=== PATIENT | female | born 1940 | race Caucasian/White ===

== ENCOUNTER → 2016-08-26 | Outpatient (CLI) | payer MEDICARE, OTHER ==
--- NOTE | 2016-08-26 10:48 | KCIC ---
PROCEDURE Lumbar spine, five views. HISTORY Pain FINDINGS Frontal, lateral, bilateral oblique and coned sacral views of the lumbar spine are obtained. There is S-shaped lumbar scoliosis, with dextrocurvature centered at the upper lumbar levels and levo curvature centered at the lower lumbar levels. There is degenerative endplate remodeling with disc space narrowing and osteophytosis at multiple levels. There is mild grade 1 anterolisthesis of L5 on S1, and to a lesser extent, L4 on L5. There is also retrolisthesis of L1 on L2, L2 on L3 and L3 on L4. There is facet arthropathy predominately at the lumbosacral junction. There is atherosclerotic abdominal aorta. IMPRESSION 1. Multilevel degenerative change within the lumbar spine, described in detail above. 2. S shaped lumbar scoliosis and multilevel listhesis, described above. Electronically signed by: Oly Landrum (Aug 26, 2016 10:46:42)
== END | disposition home or self-care (01) ==
LOC: KCIC 09:45
DX: M54.5 Low back pain (principal)
CPT/HCPCS: 72110

== ENCOUNTER → 2016-10-26 | Outpatient (CLI) | payer MEDICARE, OTHER ==
--- NOTE | 2016-10-26 16:44 | RAD ---
Indication: Enlarged thyroid. The right lobe of the thyroid measures 4.9 x 2.0 x 1.8 cm and the left lobe measures 5.2 x 2.0 x 2.4 cm. Multiple hypoechoic nodules are identified in the right lobe, largest approximately 1.5 x 0.7 cm. The isthmus is 3 mm in thickness. Both lobes do show diffuse heterogeneity. No discrete mass in the left lobe is identified. Impression: Thyroid heterogeneity. There are numerous nodules on the right, largest 1.5 cm. Follow-up in 6 months could be performed to confirm stability.
== END | disposition home or self-care (01) ==
LOC: US 16:55
PROVIDERS: ATTEND Nurse Practitioner Family
DX: E04.9 Nontoxic goiter, unspecified (principal)
CPT/HCPCS: 76536

== ENCOUNTER → 2016-10-28 | Outpatient (CLI) | payer MEDICARE, OTHER ==
--- NOTE | 2016-10-28 10:01 | CARD ---
APPROVED REPORT EXAM: Two-dimensional and M-mode echocardiogram with Doppler and color Doppler. Other Information Quality : GoodHR: 92bpm Rhythm : NSR INDICATION Nonischemic cardiomyopathy RISK FACTORS Hypertension Hyperlipidemia Family History Diabetes 2D DIMENSIONS RVDd2.4 (2.9-3.5cm)Left Atrium(2D)3.1 (1.6-4.0cm) IVSd1.3 (0.7-1.1cm)Aortic Root(2D)3.2 (2.0-3.7cm) LVDd3.8 (3.9-5.9cm)LVOT Diameter2.2 (1.8-2.4cm) PWd1.2 (0.7-1.1cm)LVDs3.2 (2.5-4.0cm) FS (%) 15.7 %SV20.9 ml Aortic Valve AoV Peak Roberto.234.9cm/sAoV VTI53.0cm AO Peak GR.22.1mmHgLVOT Peak Roberto.100.1cm/s AO Mean GR.12mmHgAVA (VMAX)1.64cm2 Mitral Valve MV E Slajfxgy25.1cm/sMV E Peak Gr.8mmHg MV A Qrfivphf381.7cm/sMV E Mean Gr.4mmHg E/A Ratio0.7MV A Gvmuthzz203fo Pulmonary Valve PV Peak Msqrtorv15.5cm/s Tricuspid Valve TR P. Lhgsyvqe538qs/sTR Peak Gr.37mmHg Pulmonary Vein S1 Accntwca52.9cm/sD2 Gvnzeuhp93.3cm/s PVa uesnlqhg40nrrx LEFT VENTRICLE The left ventricle is normal size. There is mild to moderate left ventricular hypertrophy. Left ventr icle systolic function is normal. The Ejection Fraction is 50-55%. Transmitral Doppler flow pattern i s Grade I-abnormal relaxation pattern. No left ventricle thrombus noted on this study. RIGHT VENTRICLE The right ventricle is normal size. There is normal right ventricular wall thickness. The right ventr icular systolic function is normal. ATRIA The left atrium is moderately dilated. The right atrium size is normal. 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 AORTIC VALVE The aortic valve is moderately sclerotic. The aortic valve is trileaflet. Doppler and Color Flow reve aled no significant aortic regurgitation. There is mild valvular aortic stenosis. Calculated aortic v alve area is 1.6 cm2 with maximum pressure gradient of 22.0 mmHg and mean pressure gradient of 12.0 m mHg. MITRAL VALVE Mitral annular calcification is moderate. The mitral valve leaflets are thickened. There is no eviden ce of mitral valve prolapse. There is no mitral valve stenosis. Doppler and Color Flow revealed mild mitral regurgitation. TRICUSPID VALVE Doppler and Color Flow revealed mild tricuspid regurgitation. The pulmonary artery systolic pressure is estimated at 40 mmHg. There is mild pulmonary hypertension. PULMONIC VALVE Doppler and Color Flow revealed no pulmonic valvular regurgitation. There is no pulmonic valvular katerin nosis. GREAT VESSELS The aortic root is normal in size. The ascending aorta is normal in size. The pulmonary artery is nor mal. The IVC is normal in size and collapses >50% with inspiration. PERICARDIAL EFFUSION There is no evidence of significant pericardial effusion. Critical Notification Critical Value: No <Conclusion> Left ventricle systolic function is normal. The Ejection Fraction is 50-55%. Transmitral Doppler flow pattern is Grade I-abnormal relaxation pattern. There is mild valvular aortic stenosis. Mild mitral regurgitation. Mild tricuspid regurgitation. The pulmonary artery systolic pressure is estimated at 40 mmHg. There is mild pulmonary hypertension. There is no evidence of significant pericardial effusion.
== END | disposition home or self-care (01) ==
LOC: ECHO 07:44
PROVIDERS: ATTEND Internal Medicine Cardiovascular Disease
DX: I08.1 Rheumatic disorders of both mitral and tricuspid valves (principal)
CPT/HCPCS: 93306

== ENCOUNTER → 2016-11-21 | Outpatient (CLI) | payer MEDICARE, OTHER ==
--- NOTE | 2016-11-21 15:04 | KCIC ---
Chest, 2 views, 11/21/2016: HISTORY: Cough Comparison is made to a study from 02/05/2013. The heart has decreased in size, although the left ventricle remains mildly prominent. There is calcific plaquing of the aorta. The pulmonary vascularity is normal. There is minimal bilateral apical scarring. Previously seen small bilateral pleural effusions have resolved. No acute infiltrate is seen. There is mild spurring in the spine. IMPRESSION: 1. Resolution of the previously seen small bilateral pleural effusions. 2. Mild left ventricular prominence and aortic atherosclerosis. 3. No acute abnormality is detected. Electronically signed by: Zheng Hathaway MD (11/21/2016 3:00 PM)
== END | disposition home or self-care (01) ==
LOC: KCIC 11:03
PROVIDERS: ATTEND Family Medicine
DX: R05 Cough (principal); I70.0 Atherosclerosis of aorta; R49.0 Dysphonia; R63.4 Abnormal weight loss
CPT/HCPCS: 71020

== ENCOUNTER → 2017-01-20 | Outpatient (CLI) | payer MEDICARE, OTHER ==
[~2017-01-20] MED LIST: REGADENOSON 0.4 MG/5 ML DISP.SYRIN. IV ONE
--- NOTE | 2017-01-20 13:48 | RAD ---
APPROVED REPORT Test Type: Pharmacological Stress Nurse/Tech: Jennifer Wang R.N. Test Indications: monischemic cardiiomyopathy Cardiac History: Family history, Hypertension, Diabetes Medications: See Electronic Medical Record Medical History: See Electronic Medical Record Resting ECG: S. tach Resting Heart Rate: 106 bpm Resting Blood Pressure: 130/88mmHg Pretest Chest Pain: No chest pain Nurse/Tech Notes S1S2, lungs sound clear Consent: The procedure was explained to the patient in lay terms. Informed consent was witnessed. Eliezer eout was entered into [employer]. History and Stress Test performed by Jennifer Wang R.N. Pharm. Details Pharmacologic stress testing was performed using 0.4mg per 5ml of regadenoson given intravenously ove r 7-10 seconds. Stress Symptoms Dyspnea POST EXERCISE Reason for Termination: Infusion complete Max HR: 137 bpm Max Blood Pressure: 164/85mmHg Blood Pressure response to exercise: Normal blood pressure response during stress. Chest Pain: No. Arrhythmia: Yes. occ PVC and PAC's ST Change: No. INTERPRETATION Stress EKG Conclusion: No evidence of stress induced ischemic findings. Imaging Protocol IMAGE PROTOCOL: Rest Tc-99m/stress Tc-99m 1 day Rest: Stress: Viability: Radiopharm.Tc99m ItwdgkkaiYd44t Sestamibi Dose12.4mCi 31mCi Img Date 01/20/2017 01/20/2017 Inj-Img Uihs11gnx. 60min. Rest Admin Site:IV - Right AntecubitalAdministrator:RT Paulo (R)(N) Stress Admin Site: IV - Right AntecubitalAdministrator: RT Paulo (R)(N) STRESS DATA End Diast. Vol.106.0mlAv. Heart Mnfr397.0bpm End Syst. Vol.52.0mlCO Index BSA0.0L/min Myocardial Khqy188.0gEject. Ljgpuytr32.0% Stress Rates Pk. Fill Rate3.16EDV/secLVtime Pk. Fill 104.87msec Pk. Empty Rate4.66ESV/secLVtime Pk. Jjawt604.42msec 06/21 Pk. Fill0.80EDV/sec Stress Scores Regional WT2.00Summed WT19.00 Regional WM0.00Summed WM12.00 The rest and stress images show normal perfusion, normal contraction and thickening. LV Perf. Quant 17 Seg. SSS2.00 17 Seg. SRS0.00 17 Seg. SDS2.00 Stress Defect Extent (% LAD)1.30Rest Defect Extent (% LAD)0.00Rev. Defect Extent (% LAD)1.30 Stress Defect Extent (% LCX) 0.00Rest Defect Extent (% LCX)0.00Rev. Defect Extent (% LCX)0.00 Stress Defect Extent (% RCA)0.00Rest Defect Extent (% RCA)0.00Rev. Defect Extent (% RCA)0.00 Stress Defect Extent (% STORM)1.70Rest Defect Extent (% STORM)0.00Rev. Defect Extent (% STORM)1.70 Other Information Quality:Average Risk Assessment: Low Risk Conclusion 1. No evidence of stress induced EKG changes. 2. Normal perfusion at stress/rest. 3. Low risk study. EF 50%.
== END | disposition home or self-care (01) ==
LOC: NM 07:51
PROVIDERS: ATTEND Internal Medicine Cardiovascular Disease
DX: I42.9 Cardiomyopathy, unspecified (principal); I49.5 Sick sinus syndrome; I10 Essential (primary) hypertension; E11.9 Type 2 diabetes mellitus without complications
CPT/HCPCS: 78452; 93017; 96374; 96375; 96376; A9500; J2785

== ENCOUNTER → 2019-02-06 | Outpatient (CLI) | payer MEDICARE, OTHER ==
--- NOTE | 2019-02-06 16:15 | CARD ---
MR#: [id number] Date of Study: 02/06/2019 Ordering Physician: BASHIR VERGARA, Referring Physician: BASHIR VERGARA, Tech: Cecilia Mike TOYA APPROVED REPORT EXAM: Two-dimensional and M-mode echocardiogram with Doppler and color Doppler. Other Information Quality : Good INDICATION Non-Ischemic Cardiomyopathy 2D DIMENSIONS RVDd3.2 (2.9-3.5cm)Left Atrium(2D)3.6 (1.6-4.0cm) IVSd0.7 (0.7-1.1cm)Aortic Root(2D)3.4 (2.0-3.7cm) LVDd4.1 (3.9-5.9cm)LVOT Diameter1.9 (1.8-2.4cm) PWd0.8 (0.7-1.1cm)LVDs3.0 (2.5-4.0cm) FS (%) 26.8 %SV39.7 ml LVEF(%)52.8 (>50%) Aortic Valve AoV Peak Roberto.209.4cm/sAoV VTI42.3cm AO Peak GR.17.5mmHgLVOT Peak Roberto.93.1cm/s AO Mean GR.11mmHgAVA (VMAX)1.25cm2 VALERIE (VTI)1.30cm2 Mitral Valve MV E Ttbxfbzb20.5cm/sMV DECEL UHSK702qm MV A Fybjvcja794.3cm/sE/A Ratio0.6 Tricuspid Valve TR P. Vrobieii731tl/sRAP MATAXKEQ5faUd TR Peak Gr.41kcDiGYGG03egOs Pulmonary Vein S1 Sroyejrk87.7cm/sD2 Qhhubffy53.4cm/s LEFT VENTRICLE The left ventricle is normal size. There is normal left ventricular wall thickness. Left ventricle sy stolic function is normal. The Ejection Fraction is 55-60%. There is normal LV segmental wall motion. Transmitral Doppler flow pattern is Grade I-abnormal relaxation pattern. RIGHT VENTRICLE The right ventricle is normal size. The right ventricular systolic function is normal. ATRIA The left atrium size is normal. The right atrium size is normal. The interatrial septum is intact wit h no evidence for an atrial septal defect or patent foramen ovale as noted on 2-D or Doppler imaging. AORTIC VALVE The aortic valve is calcified and displays decreased opening. Doppler and Color Flow revealed trace a ortic regurgitation. Calculated aortic valve area is 1.3 cm2 with maximum pressure gradient of 18 mmH g and mean pressure gradient of 11 mmHg. Doppler and color-flow analysis revealed mild aortic stenosi s. MITRAL VALVE The mitral valve is calcified but opens well. Posterior mitral annular calcification is mild to moder ate. There is no evidence of mitral valve prolapse. There is no mitral valve stenosis. Doppler and Co chin-flow revealed trace to mild mitral regurgitation. TRICUSPID VALVE The tricuspid valve is normal in structure and function. Doppler and Color Flow revealed mild tricusp id regurgitation. The PA pressure was estimated at 27 mmHg. There is no tricuspid valve stenosis. PULMONIC VALVE The pulmonic valve is not well visualized. Doppler and Color Flow revealed trace to mild pulmonic earl vular regurgitation. There is no pulmonic valvular stenosis. GREAT VESSELS The aortic root is normal in size. The ascending aorta is normal in size. The IVC is normal in size a nd collapses >50% with inspiration. PERICARDIAL EFFUSION There is no evidence of significant pericardial effusion. Critical Notification Critical Value: No <Conclusion> Left ventricle systolic function is normal. The Ejection Fraction is 55-60%. There is normal LV segmental wall motion. Transmitral Doppler flow pattern is Grade I-abnormal relaxation pattern. Mild aortic stenosis. Trace to mild mitral regurgitation. Mild tricuspid regurgitation. The PA pressure was estimated at 27 mmHg. There is no evidence of significant pericardial effusion. Signed by : Dany Mtz, Electronically Approved : 02/06/2019 16:15:08
== END | disposition home or self-care (01) ==
LOC: ECHO 13:59
PROVIDERS: ATTEND Internal Medicine Cardiovascular Disease
DX: I08.8 Other rheumatic multiple valve diseases (principal); I42.9 Cardiomyopathy, unspecified
CPT/HCPCS: 93306